=== PATIENT | male | born 1980 | race Caucasian/White ===

== ENCOUNTER 2020-09-25 13:43 | Emergency (ER) | payer OTHER ==
[2020-09-25] MEDS ORDERED: PREDNISONE50 MG PO (16:22)
== END 2020-09-25 16:54 | disposition home or self-care (01) ==
LOC: ER1 13:43
DX: R21 Rash and other nonspecific skin eruption (principal); F17.200 Nicotine dependence, unspecified, uncomplicated; I11.0 Hypertensive heart disease with heart failure; I50.9 Heart failure, unspecified
CPT/HCPCS: 99282; J2930